=== PATIENT | female | born 1990 | race Caucasian/White ===

== ENCOUNTER 2017-07-25 12:01 | Emergency (ER) | payer OTHER ==
[~2017-07-25] VITALS: Ht 162.6 cm; Wt 61.0 kg
[2017-07-25 12:08] VITALS: TEMP 36.9; Ht 162.6 cm; Wt 61.0 kg
[2017-07-25 12:56] LABS: BASO % 0.3 %; BASO ABS # 0.02 K/uL (0-0.2); EOS % 1.3 %; EOS ABS # 0.09 K/uL (0-0.5); HEMATOCRIT 37.2 % (37-47); HEMOGLOBIN 12.7 g/dL (12.0-16.0); IG# 0.01 K/uL (0.00-0.02); LYMPH ABS # 1.74 K/uL (1.2-3.4); MEAN CELL VOLUME 86.7 fL (80-100); MEAN CORPUSCULAR HEMOGLOBIN 29.6 pg (25-34); MEAN CORPUSCULAR HGB CONC 34.1 g/dl (32-36); MEAN PLATELET VOLUME 10.8 fL (7.4-10.4); MONO % 6.3 %; MONO ABS # 0.42 K/uL (0.11-0.59); PLATELET COUNT 174 K/uL (130-400); RED CELL DISTRIBUTION WIDTH CV 13.6 % (11.5-14.5); RED CELL DISTRIBUTION WIDTH SD 43.1 fL (36.4-46.3); WHITE BLOOD COUNT 6.68 K/uL (4.8-10.8)
[2017-07-25 13:14] LABS: CALCIUM 8.7 mg/dl (8.5-10.1); CREATININE 0.76 mg/dl (0.60-1.20); POTASSIUM 3.6 mmol/L (3.5-5.1)
--- NOTE | 2017-07-25 14:01 | DIAGNOSTIC IMAGING REPORT ---
ECTOPIC CLINICAL HISTORY: 8 weeks patent with vaginal bleeding. COMPARISON STUDY: Pelvic ultrasound June 25, 2013. TECHNIQUE: Transabdominal and transvaginal sonography of the pelvis was performed. FINDINGS: Uterus measures 7 x 4.4 x 4.6 cm. A small cystic focus within the endometrium measures 0.57 x 0.25 x 0.53 cm for a mean sac diameter of 0.45 cm. This likely reflects a gestational sac. A definite yolk sac or pole is not identified. Right ovary measures 1.2 x 2.8 x 1.2 cm and left ovary measures 4.8 x 2.2 x 3.4 cm. A 2.6 cm complex cystic left ovarian lesion suggests a corpus luteal cyst. There is color flow within each ovary. A small amount of free fluid is noted. There is no adnexal mass. IMPRESSION: 1. Small cystic focus within the endometrium likely reflects a small intrauterine gestational sac with a mean sac diameter of 0.45 cm. No yolk sac or pole identified however this may reflect a normal early intrauterine gestation given the gestational age. Clinical follow-up, including serial beta hCG levels and ultrasound is recommended. 2. Small amount of fluid within the pelvis. 3. 2.6 cm suspected left ovarian corpus luteal cyst. Electronically signed by: Min Gant M.D. 07/25/2017 2:00 PM Dictated Date/Time: 07/25/2017 1:53 PM
[2017-07-25] MEDS ORDERED: PRENTAB26 PO (14:18)
[2017-07-25 14:34] VITALS: BP 89/47; PULSE 56; O2SAT 97
[2017-07-25] MEDS ORDERED: CEFTRIAXONE SOD INJ 1 GM ADDVIAL ONE (15:45)
--- NOTE | 2017-07-25 17:18 | EMERGENCY ROOM VISIT NOTE ---
History Report prepared by Cynthia: Ladonna Chan Under the Supervision of: Dr. Dhaval Vance M.D. First contact with patient: 12:11 Chief Complaint: ABDOMINAL PAIN Stated Complaint: ABD PAIN/CRAMPING- Nursing Triage Summary: pt is est 5 wks preg and is having lower abd cramping no bleeding History of Present Illness The patient is a 27 year old female who presents to the Emergency Room with complaints of mild abdominal cramping beginning on Friday, three days ago. The patient reports her cramping worsening this morning. She notes her pain has been waxing and waning today and at its worst, she rates her pain as a 7/10. The patient is about 5 weeks . She reports her symptoms feels like the cramping she normally gets before her period starts. The patient notes increased urination but denies any fever, vomiting, or vaginal bleeding. She states is normal for her to have increased urination when . The patient states this was not a planned and that she took a Plan B pill two days after she had intercourse. She does, however, plan on keeping the baby. The patient notes this is her second . She reports her first was four years ago and she had an elective . Source of History: patient Onset: three days ago Position: abdomen Symptom Intensity: 7/10 Quality: cramping Timing: waxes/wanes Associated Symptoms: + urinary symptoms, No fevers, No vomiting Review of Systems See HPI for pertinent positives & negatives. A total of 10 systems reviewed and were otherwise negative. Past Medical & Surgical Medical Problems: (1) History of elective Family History Patient reports no known family medical history. 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 Eyes: Pupils are equal round reactive to light. Conjunctiva are noninjected. ENT: Pharynx is clear without erythema or exudate. Mucous membranes are moist. Neck supple without meningeal signs. Respiratory: Clear to auscultation bilaterally. Breath sounds are equal bilaterally. Cardiovascular: Regular rate and rhythm. No rubs or gallops. GI: Soft, nondistended and nontender. Bowel sounds are present. Musculoskeletal: No peripheral edema. Integumentary: No cyanosis. Pelvic: Cervical os is closed, no CMT, no bleeding or AV discharge, mild uterine tenderness. Neurological: The patient is awake and alert. No focal deficits. Psychiatric: Normal affect. Medical Decision & Procedures ER Provider Diagnostic Interpretation: Radiology results as stated below per my review and the radiologist's interpretation: ECTOPIC FINDINGS: Uterus measures 7 x 4.4 x 4.6 cm. A small cystic focus within the endometrium measures 0.57 x 0.25 x 0.53 cm for a mean sac diameter of 0.45 cm. This likely reflects a gestational sac. A definite yolk sac or pole is not identified. Right ovary measures 1.2 x 2.8 x 1.2 cm and left ovary measures 4.8 x 2.2 x 3.4 cm. A 2.6 cm complex cystic left ovarian lesion suggests a corpus luteal cyst. There is color flow within each ovary. A small amount of free fluid is noted. There is no adnexal mass. IMPRESSION: 1. Small cystic focus within the endometrium likely reflects a small intrauterine gestational sac with a mean sac diameter of 0.45 cm. No yolk sac or pole identified however this may reflect a normal early intrauterine gestation given the gestational age. Clinical follow-up, including serial beta hCG levels and ultrasound is recommended. 2. Small amount of fluid within the pelvis. 3. 2.6 cm suspected left ovarian corpus luteal cyst. Electronically signed by: Min Gant M.D. Laboratory Results 07/25/17 12:30 Red Blood Count 4.29, Mean Corpuscular Volume 86.7, Mean Corpuscular Hemoglobin 29.6, Mean Corpuscular Hemoglobin Concent 34.1, Mean Platelet Volume 10.8, Neutrophils (%) (Auto) 66.0, Lymphocytes (%) (Auto) 26.0, Monocytes (%) (Auto) 6.3, Eosinophils (%) (Auto) 1.3, Basophils (%) (Auto) 0.3, Neutrophils # (Auto) 4.40, Lymphocytes # (Auto) 1.74, Monocytes # (Auto) 0.42, Eosinophils # (Auto) 0.09, Basophils # (Auto) 0.02 07/25/17 12:30 Test 07/25/17 12:30 07/25/17 14:15 07/25/17 15:10 White Blood Count 6.68 K/uL (4.8-10.8) Red Blood Count 4.29 M/uL (4.2-5.4) Hemoglobin 12.7 g/dL (12.0-16.0) Hematocrit 37.2 % (37-47) Mean Corpuscular Volume 86.7 fL (80-100) Mean Corpuscular Hemoglobin 29.6 pg (25-34) Mean Corpuscular Hemoglobin Concent 34.1 g/dl (32-36) Platelet Count 174 K/uL (130-400) Mean Platelet Volume 10.8 fL (7.4-10.4) Neutrophils (%) (Auto) 66.0 % Lymphocytes (%) (Auto) 26.0 % Monocytes (%) (Auto) 6.3 % Eosinophils (%) (Auto) 1.3 % Basophils (%) (Auto) 0.3 % Neutrophils # (Auto) 4.40 K/uL (1.4-6.5) Lymphocytes # (Auto) 1.74 K/uL (1.2-3.4) Monocytes # (Auto) 0.42 K/uL (0.11-0.59) Eosinophils # (Auto) 0.09 K/uL (0-0.5) Basophils # (Auto) 0.02 K/uL (0-0.2) RDW Standard Deviation 43.1 fL (36.4-46.3) RDW Coefficient of Variation 13.6 % (11.5-14.5) Immature Granulocyte % (Auto) 0.1 % Immature Granulocyte # (Auto) 0.01 K/uL (0.00-0.02) Anion Gap 4.0 mmol/L (3-11) Est Creatinine Clear Calc Drug Dose 97.8 ml/min Estimated GFR () 126.4 Estimated GFR (Non- 109.0 BUN/Creatinine Ratio 10.5 (10-20) Calcium Level 8.7 mg/dl (8.5-10.1) Human Chorionic Gonadotropin, Quant 2554 mIU/mL Urine Color YELLOW Urine Appearance TURBID (CLEAR) Urine pH 8.5 (4.5-7.5) Urine Specific [place] 1.019 (1.000-1.030) Urine Protein NEG (NEG) Urine Glucose (UA) NEG (NEG) Urine Ketones 1+ (NEG) Urine Occult Blood NEG (NEG) Urine Nitrite NEG (NEG) Urine Bilirubin NEG (NEG) Urine Urobilinogen NEG (NEG) Urine Leukocyte Esterase TRACE (NEG) Urine WBC (Auto) 1-5 /hpf (0-5) Urine RBC (Auto) 0-4 /hpf (0-4) Urine Hyaline Casts (Auto) 1-5 /lpf (0-5) Urine Epithelial Cells (Auto) 20-30 /lpf (0-5) Urine Bacteria (Auto) NEG (NEG) Date/Time Source Procedure Growth Status 07/25/17 15:10 Vaginal Swab Trichomonas Preparation - Final Complete Laboratory results as reviewed by me. ED Course 1216: The patient was evaluated in room B6. A complete history and physical exam was performed. 1416: The patient's pain is better now and she states she feels hungry now. I discussed her test results with her. 1422: I spoke with Dr. [id number]. We discussed the patient and her results. He recommends having the patient follow up with him as an outpatient and he will do a repeat quantitative HCG and ultrasound. 1425: I reviewed the treatment plan with the patient and discussed return precautions. 1501: I performed a pelvic exam. The patient is ready to go home. 1515: Upon reevaluation, the patient appeared to have improvement of her symptoms. I discussed kimberlyight's findings with the patient. She verbalized agreement of the treatment plan. The patient was discharged home. Medical Decision This is a 27-year-old female who is presenting with abdominal pain. Differential diagnosis includes ectopic urgency, ovarian cyst, round ligament pain, heterotopic , miscarriage. I did perform a limited focused review of portions of the patient's old chart on the electronic medical record. The patient has had no recent pertinent visits to this hospital. I did evaluate the patient as noted above. IV access was established. I did order and personally review the patient's urine analysis as described above. I did order and review the patient's blood work as noted in the electronic medical record. Beta-hCG is 2554. She is not anemic. I did order a ultrasound of the pelvis. I did review the images myself as well as the radiology report as described above. The ultrasound did not show a definite IUP. There is a gestational sac but no pole or yolk sac. I did perform a pelvic examination which was unremarkable. Cultures were sent and GC chlamydia testing was sent as well. Trichomonas was negative. I did discuss the test results with the patient. I did discuss case with Dr. Watkins of oncology. He recommended outpatient follow up for repeat beta-hCG and ultrasound. I did explain to the patient that at this time the cause of her pain is unclear. She states that her pain is mostly gone and that she mostly feels hungry currently. I did explain to her that I could not completely rule out ectopic at this time. She was advised to return in 48 hours for repeat beta-hCG and also follow up with gynecology. I did have the lead case manager arrange for an appointment. I also explained to her that she should come back immediately should she have worsening symptoms or develop vaginal bleeding or any other concerning symptoms. She was discharged in good condition. Medication Reconcilliation Current Medication List: was personally reviewed by me Blood Pressure Screening Patient's blood pressure: Low blood pressure Consults Time Called: 1419 Consulting Physician: Dr. [id number] Returned Call: [address] [id number]. We discussed the patient and her results. He recommends having the patient follow up with him as an outpatient and he will do a repeat quantitative HCG and ultrasound. Impression Primary Impression: Pelvic pain Additional Impression: First trimester Scribe Attestation The scribe's documentation has been prepared under my direct and personally reviewed by me in its entirety. I confirm that the note above accurately reflects all work, treatment, procedures, and medical decision making performed by me. Departure Information Dispostion Home / Self-Care Referrals [facility] (PCP) Forms HOME CARE DOCUMENTATION FORM, IMPORTANT VISIT INFORMATION Patient Instructions ED Abdominal Pain Rule Out Ectopic, My [facility] Additional Instructions You have been examined and treated today on an emergency basis only. This is not a substitute for, or an effort to provide, complete comprehensive medical care. It is impossible to recognize and treat all injuries or illnesses in a single emergency department visit. It is therefore important that you follow up closely with Dr. Watkins of [employer] [employer]. Call as soon as possible for an appointment. Return for worsening symptoms or if you develop fever, vomiting, vaginal bleeding or any other concerning symptoms. Return here in 48 hours for recheck of your beta hCG Problem Qualifiers
== END 2017-07-25 15:00 | disposition home or self-care (01) ==
LOC: C.EDB 12:12
DX: O26.891 Other specified pregnancy related conditions, first trimester (principal); R10.2 Pelvic and perineal pain; Z3A.01 Less than 8 weeks gestation of pregnancy

== ENCOUNTER 2017-07-27 13:01 | Emergency (ER) | payer OTHER ==
[~2017-07-27] VITALS: Ht 162.6 cm; Wt 61.0 kg
[~2017-07-27 13:01] MED LIST: PRENTAB26 PO
[2017-07-27 13:08] VITALS: TEMP 37.1; Ht 162.6 cm; Wt 61.0 kg
--- NOTE | 2017-07-27 14:20 | EMERGENCY ROOM VISIT NOTE ---
History Report prepared by Cynthia: Saima Shepherd Under the Supervision of: Dr. Pito Haley M.D. 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 She states that she is here for a repeat test. She denies any vaginal discharge, vaginal bleeding, or abdominal pain. She reports that she has an appointment with her OBGYN tomorrow. 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 Review of Systems See HPI for pertinent positives & negatives. A total of 10 systems reviewed and were otherwise negative. Past Medical & Surgical Medical Problems: (1) History of elective Family History Patient reports no known family medical history. 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 HEAD: Normocephalic atraumatic EYES: Ocular movements intact pupils equal and react to light OROPHARYNX mucous membranes are moist no exudates present no erythema or edema present NECK: Supple no nuchal rigidity CHEST: Good equal expansion LUNGS: Clear and equal to auscultation CARDIAC: Normal S1 and S2 ABDOMEN: Soft nontender no guarding BACK: No CVA tenderness EXTREMITIES: No pain upon palpation normal muscle strength in all groups no clubbing cyanosis or edema NEURO: Patient is following commands and answering questions appropriately. Alert and oriented x3 Cranial Nerves 2-12 grossly intact Medical Decision & Procedures Laboratory Results Test 07/27/17 14:30 Human Chorionic Gonadotropin, Quant 6012 mIU/mL Labs reviewed by ED physician. ED Course 1413: Past medical records reviewed. The patient was evaluated in room C3. A complete history and physical examination was performed. The patient will have her blood drawn. I answered all pertaining questions that she had. She expressed understanding and verbalized agreement. The patient will be discharged home. Medical Decision Prior records/ancillary studies reviewed. Triage Nursing notes reviewed. The patient's history was concerning for vaginal bleeding and abdominal pain. Differential diagnosis: Etiologies such as ectopic , dysfunction uterine bleeding, bleeding dyscrasia, trauma, infection, as well as others were entertained. This is a 27-year-old female who presents emergency department for recheck of her abdomen. The patient's abdomen is soft and nontender. She is not having any belly pain. Repeat beta hCG was drawn it has appropriately gone up. She has a follow-up with obstetrics tomorrow. The patient did not wish to wait for her laboratory results as she is going to work. I feel that this is reasonable but stressed the need for follow-up. Medication Reconcilliation Current Medication List: was personally reviewed by me Blood Pressure Screening Patient's blood pressure: Normal blood pressure Impression Primary Impression: Elevated serum hCG Scribe Attestation The scribe's documentation has been prepared under my direction and personally reviewed by me in its entirety. I confirm that the note above accurately reflects all work, treatment, procedures, and medical decision making performed by me. Departure Information Dispostion Home / Self-Care Referrals No Doctor, Assigned (PCP) Forms HOME CARE DOCUMENTATION FORM, IMPORTANT VISIT INFORMATION, WORK / SCHOOL INSTRUCTIONS Patient Instructions My [facility] Additional Instructions Follow up with Dr Watkins's office tomorrow Return if you develop pain You have been examined and treated today on an emergency basis only. This is not a substitute for, or an effort to provide, complete comprehensive medical care. It is impossible to recognize and treat all injuries or illnesses in a single emergency department visit. It is therefore important that you follow up closely with your PCP. Call as soon as possible for an appointment. Thank you for your time and consideration. I look forward to speaking with you again soon. Please don't hesitate to call us if you have any questions.
[2017-07-27 14:41] VITALS: BP 124/75; PULSE 64; O2SAT 99
== END 2017-07-27 14:43 | disposition home or self-care (01) ==
LOC: C.EDB 13:02 → C.EDC 14:43
DX: R89.1 Abnormal level of hormones in specimens from other organs, systems and tissues (principal)

== ENCOUNTER 2017-09-01 16:36 | Emergency (ER) | payer BC, OTHER ==
[~2017-09-01] VITALS: Ht 162.6 cm; Wt 61.2 kg
[2017-09-01 16:49] VITALS: TEMP 36.7; Ht 162.6 cm; Wt 61.2 kg
--- NOTE | 2017-09-01 19:08 | EMERGENCY ROOM VISIT NOTE ---
History Report prepared by Cynthia: Chandler Pizarro Under the Supervision of: Dr. Zohra Cloud D.O. First contact with patient: 18:45 Chief Complaint: ABDOMINAL PAIN Stated Complaint: ABD PAIN Nursing Triage Summary: Abdominal pain and . History of Present Illness The patient is a 27 year old female who presents to the Emergency Room with complaints of persistent abdominal pain starting around 1400 today after eating lunch. The patient additionally states that she was having vaginal bleeding around 1600, and it was not very heavy and does not have any clots. She states that she is currently , and this is her first . She notes that she is having an ache in her upper stomach, and she is having waxing and waning cramping in her lower abdomen. The patient states that she has been nauseous for a while, and last night and today she was vomiting. She states that she is currently light headed and dizzy, and she states that she is having lower back pain. She also notes that she had the chills earlier. She denies any change in urination or her bowel movements. The patient reports that she last had intercourse yesterday, and she did not have any pain or bleeding. She states that she has a family history of miscarriages, and she states that she had a history of an abnormal pap smear, though it stabilized afterwards. Source of History: patient Onset: 1400 Position: abdomen Quality: ache, cramping Timing: other (persistent) Associated Symptoms: + chills, + nausea, + vomiting, + back pain Note: Associated symptoms: vaginal bleeding, light head, dizzy Review of Systems See HPI for pertinent positives & negatives. A total of 10 systems reviewed and were otherwise negative. 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 Current/Historical Medications Scheduled Doxylamine-Pyridoxine (Diclegis), 1 TAB PO BID Multivit/Min/Iron/Fol Ac/Pren ( Vitamin), 1 TAB PO DAILY Allergies Coded Allergies: No Known Allergies (Unverified , 07/27/17) Physical Exam Vital Signs Date Time Temp Pulse Resp B/P (MAP) Pulse Ox O2 Delivery O2 Flow Rate FiO2 09/01/17 20:32 68 16 102/70 98 Room Air 09/01/17 19:17 70 16 94/51 98 Room Air 09/01/17 16:49 36.7 89 20 111/71 99 Room Air Physical Exam GENERAL: alert, tearful appearing, well nourished, no distress, non-toxic EYE EXAM: normal conjunctiva, PERRL and EOM's grossly intact OROPHARYNX: no exudate, no erythema, lips, buccal mucosa, and tongue normal and mucous membranes are moist NECK: supple, no nuchal rigidity, no adenopathy, non-tender LUNGS: Clear to auscultation. Normal chest wall mechanics HEART: no murmurs, S1 normal and S2 normal ABDOMEN: Mild lower abdominal discomfort. Abdomen soft, normo-active bowel sounds, no masses, no rebound or guarding. BACK: Back is symmetrical on inspection and there is no deformity, no midline tenderness, no CVA tenderness. SKIN: no rashes and no bruising UPPER EXTREMITIES: upper extremities are grossly normal. LOWER EXTREMITIES: No pitting edema. NEURO EXAM: Normal sensorium, cranial nerves II-XII grossly intact, normal speech, no gross weakness of arms, no gross weakness of legs. Medical Decision & Procedures ER Provider Diagnostic Interpretation: Radiology results have been interpreted by the radiologist and reviewed by me. <14 WKS SINGLE CLINICAL HISTORY: preg, cramping, bleeding bleeding TECHNIQUE: Transabdominal/transvaginal ultrasound COMPARISON STUDY: 07/25/2017 FINDINGS: Single, viable intrauterine . S/P gestational age is 10 weeks 5 days. Cardiac activity is confirmed. There is a small subchorionic bleed within the fundal aspect of the uterus measuring 2 x 0.5 cm. Right ovary is normal with normal vascular flow. There is a 2.6 cm corpus luteum cyst of the left ovary. Normal vascular flow is confirmed to both ovaries. IMPRESSION: Single, viable intrauterine of approximately 10 weeks 5 days gestational age. Small subchorionic bleed. The above report was generated using voice recognition software. It may contain grammatical, syntax or spelling errors. Electronically signed by: Ky Russell M.D. 09/01/2017 8:10 PM Dictated Date/Time: 09/01/2017 8:08 PM Laboratory Results 09/01/17 19:06 Red Blood Count 4.58, Mean Corpuscular Volume 86.0, Mean Corpuscular Hemoglobin 30.3, Mean Corpuscular Hemoglobin Concent 35.3, Mean Platelet Volume 10.7, Neutrophils (%) (Auto) 73.6, Lymphocytes (%) (Auto) 20.4, Monocytes (%) (Auto) 4.4, Eosinophils (%) (Auto) 1.3, Basophils (%) (Auto) 0.1, Neutrophils # (Auto) 6.16, Lymphocytes # (Auto) 1.71, Monocytes # (Auto) 0.37, Eosinophils # (Auto) 0.11, Basophils # (Auto) 0.01 09/01/17 19:06 Test 09/01/17 19:06 09/01/17 20:14 White Blood Count 8.38 K/uL (4.8-10.8) Red Blood Count 4.58 M/uL (4.2-5.4) Hemoglobin 13.9 g/dL (12.0-16.0) Hematocrit 39.4 % (37-47) Mean Corpuscular Volume 86.0 fL (80-100) Mean Corpuscular Hemoglobin 30.3 pg (25-34) Mean Corpuscular Hemoglobin Concent 35.3 g/dl (32-36) Platelet Count 179 K/uL (130-400) Mean Platelet Volume 10.7 fL (7.4-10.4) Neutrophils (%) (Auto) 73.6 % Lymphocytes (%) (Auto) 20.4 % Monocytes (%) (Auto) 4.4 % Eosinophils (%) (Auto) 1.3 % Basophils (%) (Auto) 0.1 % Neutrophils # (Auto) 6.16 K/uL (1.4-6.5) Lymphocytes # (Auto) 1.71 K/uL (1.2-3.4) Monocytes # (Auto) 0.37 K/uL (0.11-0.59) Eosinophils # (Auto) 0.11 K/uL (0-0.5) Basophils # (Auto) 0.01 K/uL (0-0.2) RDW Standard Deviation 42.5 fL (36.4-46.3) RDW Coefficient of Variation 13.8 % (11.5-14.5) Immature Granulocyte % (Auto) 0.2 % Immature Granulocyte # (Auto) 0.02 K/uL (0.00-0.02) Anion Gap 9.0 mmol/L (3-11) Est Creatinine Clear Calc Drug Dose 101.8 ml/min Estimated GFR () 132.7 Estimated GFR (Non- 114.5 BUN/Creatinine Ratio 14.8 (10-20) Calcium Level 8.9 mg/dl (8.5-10.1) Human Chorionic Gonadotropin, Quant 610656 mIU/mL Urine Color YELLOW Urine Appearance CLEAR (CLEAR) Urine pH 6.0 (4.5-7.5) Urine Specific [place] 1.023 (1.000-1.030) Urine Protein NEG (NEG) Urine Glucose (UA) NEG (NEG) Urine Ketones NEG (NEG) Urine Occult Blood NEG (NEG) Urine Nitrite NEG (NEG) Urine Bilirubin NEG (NEG) Urine Urobilinogen NEG (NEG) Urine Leukocyte Esterase NEG (NEG) Laboratory results per my review. Medications Administered Medications (Trade) Dose Ordered Sig/Abril Route Start Time Stop Time Status Last Admin Dose Admin Ondansetron HCl (Zofran Inj) 4 mg NOW STAT IV 09/01/17 20:08 09/01/17 20:09 DC 09/01/17 20:08 4 MG Ondansetron HCl (ZOFRAN ODT 4MG Home Pack) 1 homepack UD ONCE PO 09/01/17 20:45 09/01/17 20:46 DC 09/01/17 20:42 1 HOMEPACK ED Course 1844: The patient was evaluated in room A10. A complete history and physical exam was performed. 2007: Zofran 4mg IV 2021: Upon reevaluation, the patient is doing well, and I updated her on the results. I discussed the findings and the treatment plan with the patient. She verbalizes agreement and understanding. She was discharged home and will follow up with [facility] 2044: Zofran ODT 4mg Home Pack PO Medical Decision Differential diagnosis: Etiologies such as ectopic , dysfunction uterine bleeding, bleeding dyscrasia, trauma, infection, as well as others were entertained. 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 Discussed pelvic rest, hydration, nausea meds, PNV, sx to watch/return for, she verbalized understanding and was agreeable with plan. No recurrent bleeding while here. Bleeding likely from subchorionic hematoma. No orthostatic symptoms, minimal cramping on exam, VS stable. H/H stable. No need for rhogam. Pt well appearing at discharge, comfortable with plan and verbalized understanding of all results. Medication Reconcilliation Current Medication List: was personally reviewed by me Blood Pressure Screening Patient's blood pressure: Normal blood pressure Impression Primary Impression: First trimester Additional Impressions: Vaginal bleeding during Abdominal pain during Scribe Attestation The scribe's documentation has been prepared under my direction and personally reviewed by me in its entirety. I confirm that the note above accurately reflects all work, treatment, procedures, and medical decision making performed by me. Departure Information Dispostion Home / Self-Care Prescriptions Doxylamine-Pyridoxine (DICLEGIS) 1 Tab Tab 1 TAB PO BID for Nausea, #20 Prov: Zohra Cloud, DO 09/01/17 Referrals No Doctor, Assigned (PCP) Forms HOME CARE DOCUMENTATION FORM, IMPORTANT VISIT INFORMATION Patient Instructions My [facility] Additional Instructions Please follow up with your [facility]. Please tell them you were seen and evaluated in the emergency room for bleeding and found to have a subchorionic hematoma. Please continue to take your vitamins daily and try to drink plenty of clear liquids to stay well-hydrated. You may eat as tolerated. You may use a nausea medication as provided. If you have any worsening pain, recurrent bleeding, develop dizziness, fevers, or you've any other new concerns , please return the emergency room. Problem Qualifiers Additional Impressions: Abdominal pain during Trimester: first trimester Qualified Codes: O26.891 - Other specified related conditions, first trimester; R10.9 - Unspecified abdominal pain
[2017-09-01 19:17] LABS: BASO % 0.1 %; BASO ABS # 0.01 K/uL (0-0.2); EOS % 1.3 %; EOS ABS # 0.11 K/uL (0-0.5); HEMATOCRIT 39.4 % (37-47); HEMOGLOBIN 13.9 g/dL (12.0-16.0); IG# 0.02 K/uL (0.00-0.02); LYMPH % 20.4 %; LYMPH ABS # 1.71 K/uL (1.2-3.4); MEAN CORPUSCULAR HEMOGLOBIN 30.3 pg (25-34); MEAN CORPUSCULAR HGB CONC 35.3 g/dl (32-36); MEAN PLATELET VOLUME 10.7 fL (7.4-10.4); MONO % 4.4 %; MONO ABS # 0.37 K/uL (0.11-0.59); NEUT % 73.6 %; NEUT ABS # 6.16 K/uL (1.4-6.5); PLATELET COUNT 179 K/uL (130-400); RED CELL DISTRIBUTION WIDTH CV 13.8 % (11.5-14.5); RED CELL DISTRIBUTION WIDTH SD 42.5 fL (36.4-46.3); WHITE BLOOD COUNT 8.38 K/uL (4.8-10.8)
[2017-09-01 19:35] LABS: CALCIUM 8.9 mg/dl (8.5-10.1); CREATININE 0.73 mg/dl (0.60-1.20); POTASSIUM 3.3 mmol/L (3.5-5.1)
[2017-09-01] MEDS ORDERED: ONDANSETRON INJ 2 MG/ML 2 ML VIAL IV STA (20:08)
--- NOTE | 2017-09-01 20:12 | DIAGNOSTIC IMAGING REPORT ---
<14 WKS SINGLE CLINICAL HISTORY: preg, cramping, bleeding bleeding TECHNIQUE: Transabdominal/transvaginal ultrasound COMPARISON STUDY: 07/25/2017 FINDINGS: Single, viable intrauterine . S/P gestational age is 10 weeks 5 days. Cardiac activity is confirmed. There is a small subchorionic bleed within the fundal aspect of the uterus measuring 2 x 0.5 cm. Right ovary is normal with normal vascular flow. There is a 2.6 cm corpus luteum cyst of the left ovary. Normal vascular flow is confirmed to both ovaries. IMPRESSION: Single, viable intrauterine of approximately 10 weeks 5 days gestational age. Small subchorionic bleed. The above report was generated using voice recognition software. It may contain grammatical, syntax or spelling errors. Electronically signed by: Ky Russell M.D. 09/01/2017 8:10 PM Dictated Date/Time: 09/01/2017 8:08 PM
[2017-09-01 20:32] VITALS: BP 102/70; PULSE 68; O2SAT 98
[2017-09-01] MEDS ORDERED: DOXY30TA PO (20:36)
[2017-09-01] MEDS ORDERED: ONDANSETRON HOME PACK 4MG OD TAB PO ONE (20:45)
== END 2017-09-01 20:46 | disposition home or self-care (01) ==
LOC: C.EDB 16:39 → C.EDA 20:46
DX: Z34.01 Encounter for supervision of normal first pregnancy, first trimester (principal); O46.91 Antepartum hemorrhage, unspecified, first trimester; O26.891 Other specified pregnancy related conditions, first trimester

== ENCOUNTER → 2018-02-02 | Outpatient (CLI) | payer OTHER ==
[~2018-02-02] MED LIST changes: +CLR10 PO; +DOXY30TA PO
== END | disposition home or self-care (01) ==
LOC: C.PATHSPEC 13:12
PROVIDERS: ATTEND Podiatrist Foot & Ankle Surgery
DX: L60.8 Other nail disorders (principal); R23.4 Changes in skin texture